=== PATIENT | male | born 1995 | race Two or more races ===

== ENCOUNTER 2019-01-23 12:40 | Emergency (ER) | payer MEDICAID ==
[~2019-01-23] VITALS: Ht 170.2 cm; Wt 65.0 kg
[2019-01-23 12:59] VITALS: BP 114/49
== END 2019-01-23 15:20 | disposition left against medical advice (07) ==
LOC: ER 12:40
DX: Z53.21 Procedure and treatment not carried out due to patient leaving prior to being seen by health care provider (principal)